=== PATIENT | female | born 1970 | race Caucasian/White ===

== ENCOUNTER 2017-11-08 06:06 | Day surgery (SDC) | payer OTHER ==
[~2017-11-08] VITALS: Ht 167.6 cm; Wt 96.2 kg
[~2017-11-08 06:06] MED LIST: ACET500 PO; ALBU90OI INH; AMOX500 PO; CEPH500 PO; CLOB.05TO; CODACE30 PO; COMPAZINE10 MG PO; CYCL10; CYCL10 PO; DIAZ2 PO; DIPATR PO; DOXY100 PO; ELET40TA PO; FLUT.05NI; GUAI600T33 PO; HYDMOR4 PO; IBUP600 PO; IBUP800 PO; LEVO-T25 MCG PO; MARIJUANA; NAPR500 PO; OXYACE5T PO; PROACE100; PROM25 PO; Preparation H26 GM; RELPAX PO; RIZATRIPTAN10 M1 PO; RXLEVESTKI PO; RXPROACE PO; SACC250C PO; TRAM50 PO; TRIA80TC TOP; TUCKS1 EACH TP; Zofran Odt4 MG SL; Zofran Odt8 MG SL; Zofran4 MG PO; medical marijuana
== END 2017-11-08 08:51 | disposition home or self-care (01) ==
LOC: ORSCSDS 06:06
PROVIDERS: Obstetrics & Gynecology
PROC: 0UB98ZX Excision of Uterus, Via Natural or Artificial Opening Endoscopic, Diagnostic (ICD-10-PCS; principal; 2017-11-08 07:30)
PROC: 0UH97HZ Insertion of Contraceptive Device into Uterus, Via Natural or Artificial Opening (ICD-10-PCS; principal; 2017-11-08 07:30)
DX: N92.0 Excessive and frequent menstruation with regular cycle (principal); N84.0 Polyp of corpus uteri; Z30.2 Encounter for sterilization; E03.9 Hypothyroidism, unspecified; K21.9 Gastro-esophageal reflux disease without esophagitis; J45.909 Unspecified asthma, uncomplicated; E66.9 Obesity, unspecified; Z68.34 Body mass index [BMI] 34.0-34.9, adult; Z79.899 Other long term (current) drug therapy
CPT/HCPCS: 88305; J1100; J2250; J2405; J2550; J2765; J3010; J7120; J7298

== ENCOUNTER 2018-10-04 17:05 | Emergency (ER) | payer OTHER ==
[~2018-10-04] VITALS: Ht 170.2 cm; Wt 99.8 kg
[2018-10-04] MEDS ORDERED: BIRTH CONTROL (18:21)
[2018-10-04] MEDS ORDERED: Colace100 MG PO (18:23)
== END 2018-10-04 18:34 | disposition home or self-care (01) ==
LOC: ER 17:05
DX: K59.00 Constipation, unspecified (principal); G43.909 Migraine, unspecified, not intractable, without status migrainosus; Z88.5 Allergy status to narcotic agent; Z79.899 Other long term (current) drug therapy
CPT/HCPCS: 74019; 99283-25

== ENCOUNTER → 2021-03-27 | Outpatient (CLI) | payer OTHER ==
[~2021-03-27] MED LIST changes: +BIRTH CONTROL; +Colace100 MG PO
[2021-04-02 16:06] LABS: COTININE <10.0 ng/mL (.); NICOTINE <10.0 ng/mL (.)
== END | disposition home or self-care (01) ==
LOC: LAB 14:53 → LAB SHORT 14:53 → EDSTATUS 03-23 16:15 → LAB FUT 03-23 16:15
PROVIDERS: Podiatrist Foot & Ankle Surgery
DX: M76.61 Achilles tendinitis, right leg (principal); Z87.891 Personal history of nicotine dependence
CPT/HCPCS: G0480

== ENCOUNTER 2021-04-28 08:09 | Day surgery (SDC) | payer OTHER ==
[~2021-04-28] VITALS: Ht 170.2 cm; Wt 106.2 kg
[2021-04-28] MEDS ORDERED: MOTRIN IB200 MG PO (08:41)
== END 2021-04-28 11:08 | disposition home or self-care (01) ==
LOC: ORSCSDS 08:09
PROVIDERS: Podiatrist Foot & Ankle Surgery
PROC: 0L8N0ZZ Division of Right Lower Leg Tendon, Open Approach (ICD-10-PCS; principal; 2021-04-28 09:30)
DX: M24.571 Contracture, right ankle (principal); M76.61 Achilles tendinitis, right leg; E03.9 Hypothyroidism, unspecified; K21.9 Gastro-esophageal reflux disease without esophagitis; Z79.899 Other long term (current) drug therapy
CPT/HCPCS: A9270; J0690; J1100; J2250; J2405; J2704; J3010; J7120

== ENCOUNTER 2021-08-22 12:04 | Day surgery (SDC) | payer OTHER ==
[~2021-08-22] VITALS: Ht 170.2 cm; Wt 101.4 kg
[~2021-08-22 12:04] MED LIST changes: +CLOBETASOL EMOL15 G2; +EUTHYROX50 MCG PO; +MOTRIN IB200 MG PO; +Mobic15 MG PO; +NYSTOP15 GM
[2021-08-22] MEDS ORDERED: ELET40TA PO (12:50)
== END 2021-08-22 14:35 | disposition home or self-care (01) ==
LOC: ORSCSDS 12:04
PROVIDERS: Surgery
PROC: 0DBM8ZX Excision of Descending Colon, Via Natural or Artificial Opening Endoscopic, Diagnostic (ICD-10-PCS; principal; 2021-08-22 13:30)
PROC: 0DBP8ZX Excision of Rectum, Via Natural or Artificial Opening Endoscopic, Diagnostic (ICD-10-PCS; principal; 2021-08-22 13:30)
DX: Z12.11 Encounter for screening for malignant neoplasm of colon (principal); D12.4 Benign neoplasm of descending colon; K62.1 Rectal polyp; J44.9 Chronic obstructive pulmonary disease, unspecified; F32.A Depression, unspecified; E78.5 Hyperlipidemia, unspecified; E03.9 Hypothyroidism, unspecified; R62.59 Other lack of expected normal physiological development in childhood; Z79.899 Other long term (current) drug therapy; F17.210 Nicotine dependence, cigarettes, uncomplicated
CPT/HCPCS: 88305; J2250; J2704; J7120

== ENCOUNTER 2022-09-01 02:26 | Emergency (ER) | payer OTHER ==
[~2022-09-01] VITALS: Ht 170.2 cm; Wt 102.1 kg
[2022-09-01 02:58] LABS: BASOPHILS ABSOLUTE AUTO 0.05 K/mm3 (0.00-0.23); BASOPHILS PERCENT AUTO 1 % (0-2); EOSINOPHILS ABSOLUTE AUTO 0.21 K/mm3 (0.00-0.68); EOSINOPHILS PERCENT AUTO 3 % (0-6); Hematocrit 40.6 % (33.0-51.0); Hemoglobin 13.2 g/dL (11.5-16.0); IMMATURE GRAN ABSOLUTE AUTO 0.01 K/mm3 (0.00-0.10); IMMATURE GRAN PERCENT AUTO 0 % (0-1); LYMPHOCYTES ABSOLUTE AUTO 2.03 K/mm3 (0.84-5.20); LYMPHOCYTES PERCENT AUTO 30 % (21-46); MONOCYTES ABSOLUTE AUTO 0.51 K/mm3 (0.16-1.47); MONOCYTES PERCENT AUTO 7 % (4-13); Mean Corpuscular HGB 25.8 pg (26.0-34.0); Mean Corpuscular HGB Conc 32.5 g/dL (31.5-36.5); Mean Corpuscular Volume 79 fL (80-100); Mean Platelet Volume 10.2 fL (9.1-12.4); NEUTROPHILS ABSOLUTE AUTO 4.04 K/mm3 (1.96-9.15); NEUTROPHILS PERCENT AUTO 59 % (41-73); Platelet Count 323 K/mm3 (150-400); RDW Coefficient Variation 14.5 % (11.7-14.2); RDW Standard Deviation 42.1 fL (35.1-46.3); Red Blood Cell Count 5.12 M/mm3 (3.80-5.20); White Blood Cell Count 6.85 K/mm3 (4.00-11.30)
[2022-09-01 03:14] LABS: Albumin/Globulin Ratio 1.2 (0.8-1.8); Bilirubin, Total 0.2 mg/dL (0.1-1.0); Bun/Creatinine Ratio 15.8 (12.0-20.0); Calcium, Blood 8.6 mg/dL (8.5-10.1); Creatinine, Blood 1.01 mg/dL (0.40-1.00); Globulin, Blood 3.4 g/dL (2.2-4.0); Potassium, Blood 3.9 mmol/L (3.5-5.5); Total Protein, Blood 7.4 g/dL (6.4-8.2)
[2022-09-01 05:30] VITALS: BP 110/60
== END 2022-09-01 06:00 | disposition home or self-care (01) ==
LOC: ER 02:26
PROVIDERS: Student in an Organized Health Care Education/Training Program
DX: R07.9 Chest pain, unspecified (principal); R05.9 Cough, unspecified; Z88.5 Allergy status to narcotic agent; Z79.899 Other long term (current) drug therapy
CPT/HCPCS: 36415; 71046; 80053; 83690; 83880; 84484; 85025; 93005; 93010; 96374; 99284-25; A9270; J1885

== ENCOUNTER 2023-03-14 12:34 | Day surgery (SDC) | payer OTHER ==
[~2023-03-14] VITALS: Ht 167.6 cm; Wt 101.3 kg
--- NOTE | 2023-03-14 14:36 | NUR ---
03/14/23 1436 DEEP KHAN GIVEN POST EGD FOR NAUSEA PER DR ROMO
[2023-03-14 15:34] VITALS: BP 108/68
== END 2023-03-14 15:00 | disposition home or self-care (01) ==
LOC: ORSCSDS 12:34
PROVIDERS: Surgery
PROC: 0DB68ZX Excision of Stomach, Via Natural or Artificial Opening Endoscopic, Diagnostic (ICD-10-PCS; principal; 2023-03-14 14:15)
DX: R10.13 Epigastric pain (principal); K44.9 Diaphragmatic hernia without obstruction or gangrene; K21.9 Gastro-esophageal reflux disease without esophagitis; F32.A Depression, unspecified; E03.9 Hypothyroidism, unspecified; E78.5 Hyperlipidemia, unspecified; J45.909 Unspecified asthma, uncomplicated; E66.9 Obesity, unspecified; Z68.34 Body mass index [BMI] 34.0-34.9, adult
CPT/HCPCS: 88305; 88342; J0461; J2001; J2405; J2704; J7120; Q9968

== ENCOUNTER 2023-04-23 09:09 | Observation (INO) | payer OTHER ==
[~2023-04-23] VITALS: Ht 167.6 cm; Wt 98.6 kg
[2023-04-23] VITALS (20 sets, daily range): BP systolic 92–159; BP diastolic 45–131
[~2023-04-23 09:09] MED LIST changes: +CLOBETASOL EMOL15 G1 TOP; +MELO7.5 PO; +NYSTOP15 GM TOP; +OMEP20ER PO; +OXYC5 PO
--- NOTE | 2023-04-23 10:02 | NUR ---
History, Chart, Medications and Allergies reviewed before start of procedure. Ambulatory in Day Surgery. Pre-Op teaching done. Pt verbalizes understanding. Patient confirms NPO status and agrees with scheduled surgery. Patient reports completing Chlorhexadine shower X2 prior to admission to hospital. Patient States Post-Procedure ride home has been arranged.
--- NOTE | 2023-04-23 14:35 | NUR ---
PT ARRIVED TO THE ROOM AT 1420. PT DROWSY UPON ARRIVAL. SHE COMPLAINS OF 10/10 PAIN WHEN DISTURBED REST WITH EYES CLOSED, REPIRATIONS EVEN AND UNLABORED AND APPEARS RELAXED WHEN SHE IS LEFT TO REST. PT PLACED ON 2L O2 VIA NC FOR O2 SATURATION OF 88% ON RA, O2 SATURATION >90% ON 2L O2. L INCISIONS SITES HAVE SCANT RED DRAINAGE. PT'S S/O IS AT THE BEDSIDE. CALL LIGHT WITHIN REACH.
--- NOTE | 2023-04-23 17:30 | NUR ---
NAUSEA/ANXIETY PT HAD DRY HEAVING SINCE ARRIVAL TO THE ROOM. PT WAS GIVEN ZOFRAN WITH SOME IMPROVEMENT AND SHE WAS ABLE TO REST. WHEN SHE US AWAKE SHE IS ANXIOUS AND IMMEDIATELY BEGINS TO DRY HEAVE. DR. GUILLERMO NOTIFIED, ATIVAN AND SCOPALAMINE PATCH ORDERED.
--- NOTE | 2023-04-23 20:27 | NUR ---
SHIFT SUMMARY PT IS POD#0. SHE HAS BEEN NAUSEATED, ANXIOUS AND PAINFUL POST-OP. PT GIVEN ZOFRAN AND SCOPALAMINE PATCH GIVEN FOR NAUSEA. ATIVAN GIVEN FOR NAUSEA. PT HAS BEEN RESTING QUIETLY SINCE ATIVAN GIVEN, SHE WAKES WHEN SPOKEN TO. PT ON CONTINUOUS PULSE OX FOR SAFETY. PT IS A 1 ASSIST WHEN OOB. HER IS AT THE BEDSIDE FOR SUPPORT. REPORT GIVEN TO DANIELLE GRIMM.
[2023-04-24 01:00] VITALS: BP 101/63
[2023-04-24 03:37] VITALS: BP 111/65
[2023-04-24 04:06] LABS: Hematocrit 35.8 % (33.0-51.0); Hemoglobin 11.5 g/dL (11.5-16.0); Mean Corpuscular HGB 25.3 pg (26.0-34.0); Mean Corpuscular HGB Conc 32.1 g/dL (31.5-36.5); Mean Corpuscular Volume 79 fL (80-100); Platelet Count 298 K/mm3 (150-400); RDW Coefficient Variation 14.2 % (11.7-14.2); RDW Standard Deviation 40.8 fL (35.1-46.3); Red Blood Cell Count 4.54 M/mm3 (3.80-5.20); White Blood Cell Count 8.99 K/mm3 (4.00-11.30)
[2023-04-24 04:23] LABS: Bun/Creatinine Ratio 10.8 (12.0-20.0); Calcium, Blood 7.7 mg/dL (8.5-10.1); Creatinine, Blood 0.83 mg/dL (0.40-1.00); Magnesium, Blood 2.5 mg/dL (1.6-2.4)
--- NOTE | 2023-04-24 05:23 | NUR ---
SHIFT SUMMARY NOC. PT A/O X4. PT'S 5 LAP SITES ARE DRY AND INTACT WITH SEROUSANG DRAINAGE ON ONE SITE. PT MEDICATED FOR NAUSEA X2 THIS SHIFT WITH RELIEF. PT REPORTS NAUSEA AFTER DRINKING CLEAR LIQUIDS. IV FLUIDS RUNNING. PT HAS NOT VOMITTED. PT DENIES PASSING GAS BUT HAS BEEN BELCHING. PT RESTED WITH EYES CLOSED, WITH AT BEDSIDE, AND CALL LIGHT IN REACH.
[2023-04-24 08:00] VITALS: BP 101/52
[2023-04-24 14:01] VITALS: BP 94/58
[2023-04-24 20:13] VITALS: BP 101/55
[2023-04-25 05:05] VITALS: BP 104/59
--- NOTE | 2023-04-25 06:33 | NUR ---
SHIFT SUMMARY PT IS POD#2 FOR A ROBOTIC LAP PARAESOPHAGEAL HERNIA REPAIR W/TOUPET FUNDOPLICATION AND A ROBOTIC CHOLECYSTECTOMY. PT HAS WALKED SEVERAL TIMES IN THE HALLWAY WITH HER PARTNER AND HAS BEEN STEADY THROUGHOUT THE SHIFT. PT'S PAIN HAS BEEN MANAGED PER EMAR. VITAL SIGNS HAVE BEEN STABLE AND NO ACUTE EVENTS OCCURRED DURING THIS SHIFT. BED IS IN LOWEST POSITION, CALL LIGHT IS WITHIN REACH.
[2023-04-25 08:24] VITALS: BP 100/65
== END 2023-04-25 13:30 | disposition home or self-care (01) ==
LOC: ORSCMMR 09:09 → ORD 10:30 → SURS 14:20 → ORSCMMR 14:21 → SURS 15:16
PROVIDERS: ADMIT Surgery
DX: K80.10 Calculus of gallbladder with chronic cholecystitis without obstruction (principal); K44.9 Diaphragmatic hernia without obstruction or gangrene; K21.9 Gastro-esophageal reflux disease without esophagitis; E78.5 Hyperlipidemia, unspecified; E03.9 Hypothyroidism, unspecified; E66.9 Obesity, unspecified; Z88.5 Allergy status to narcotic agent; Z88.8 Allergy status to other drugs, medicaments and biological substances; Z79.890 Hormone replacement therapy; Z79.899 Other long term (current) drug therapy
CPT/HCPCS: 36415; 80048; 83735; 85027; 88304; 94760; 94762; 96361; 96372; 96374; 96375; 96376; A9270; G0378; J0690; J1100; J1170; J1650; J1885; J2060; J2250; J2405; J2704; J2765; J3010; J7120

== ENCOUNTER → 2023-06-20 | Outpatient (CLI) | payer OTHER ==
[2023-06-20 12:34] LABS: BASOPHILS ABSOLUTE AUTO 0.05 K/mm3 (0.00-0.23); BASOPHILS PERCENT AUTO 1 % (0-2); EOSINOPHILS ABSOLUTE AUTO 0.12 K/mm3 (0.00-0.68); EOSINOPHILS PERCENT AUTO 2 % (0-6); Hematocrit 38.1 % (33.0-51.0); IMMATURE GRAN ABSOLUTE AUTO 0.01 K/mm3 (0.00-0.10); IMMATURE GRAN PERCENT AUTO 0 % (0-1); LYMPHOCYTES ABSOLUTE AUTO 1.91 K/mm3 (0.84-5.20); LYMPHOCYTES PERCENT AUTO 38 % (21-46); MONOCYTES ABSOLUTE AUTO 0.41 K/mm3 (0.16-1.47); MONOCYTES PERCENT AUTO 8 % (4-13); Mean Corpuscular HGB 24.8 pg (26.0-34.0); Mean Corpuscular HGB Conc 31.5 g/dL (31.5-36.5); Mean Corpuscular Volume 79 fL (80-100); Mean Platelet Volume 10.1 fL (9.1-12.4); NEUTROPHILS ABSOLUTE AUTO 2.58 K/mm3 (1.96-9.15); NEUTROPHILS PERCENT AUTO 51 % (41-73); Platelet Count 324 K/mm3 (150-400); RDW Coefficient Variation 15.1 % (11.7-14.2); RDW Standard Deviation 43.4 fL (35.1-46.3); Red Blood Cell Count 4.84 M/mm3 (3.80-5.20); White Blood Cell Count 5.08 K/mm3 (4.00-11.30)
[2023-06-20 12:55] LABS: CHOL/HDL RATIO 3.6; Cholesterol 175 mg/dL (50-200); HDL Cholesterol 49 mg/dL (>39); Low Density Lipoprotein Chol 98 mg/dL (0-110); Triglycerides 141 mg/dL (30-160); Very Low Density Lipoprot Chol 28 mg/dL (6-32)
[2023-06-21 15:11] LABS: A/G RATIO 1.7 (1.2-2.2); ALKALINE PHOSPHATASE, S 55 IU/L (44-121); ALT (SGPT) 12 IU/L (0-32); AST (SGOT) 14 IU/L (0-40); BILIRUBIN, TOTAL <0.2 mg/dL (0.0-1.2); BUN 14 mg/dL (6-24); BUN/CREATININE RATIO 16 (9-23); CALCIUM, SERUM 8.7 mg/dL (8.7-10.2); CARBON DIOXIDE, TOTAL 21 mmol/L (20-29); CHLORIDE, SERUM 105 mmol/L (96-106); CREATININE, SERUM 0.89 mg/dL (0.57-1.00); GLOBULIN, TOTAL 2.4 g/dL (1.5-4.5); GLUCOSE, SERUM 104 mg/dL (70-99); POTASSIUM, SERUM 4.3 mmol/L (3.5-5.2); PROTEIN, TOTAL, SERUM 6.4 g/dL (6.0-8.5); SODIUM, SERUM 139 mmol/L (134-144)
== END ==
LOC: LAB 10:50 → LAB SHORT 10:50
PROVIDERS: Internal Medicine
DX: Z12.4 Encounter for screening for malignant neoplasm of cervix (principal); E03.9 Hypothyroidism, unspecified; E78.5 Hyperlipidemia, unspecified; R73.9 Hyperglycemia, unspecified
CPT/HCPCS: 80053; 80061; 83036; 84443; 85025

== ENCOUNTER 2023-11-24 21:15 | Emergency (ER) | payer OTHER ==
[~2023-11-24] VITALS: Ht 170.2 cm; Wt 96.6 kg
[2023-11-24] MEDS ORDERED: Ketorolac Tromethamine 30mg Vial IV ONE (23:10)
[2023-11-24] MEDS ORDERED: FentaNYL Citrate 50 MCG/ML 2 ML Injection IV ONE (23:15)
[2023-11-25 01:15] VITALS: BP 115/63
== END 2023-11-25 01:20 | disposition home or self-care (01) ==
LOC: ER 21:15
DX: S90.112A Contusion of left great toe without damage to nail, initial encounter (principal); W22.8XXA Striking against or struck by other objects, initial encounter; Y92.828 Other wilderness area as the place of occurrence of the external cause
CPT/HCPCS: 73630; 96374; 96375; 99283-25; J1885; J3010

== ENCOUNTER 2024-02-02 15:14 | Emergency (ER) | payer OTHER ==
[~2024-02-02] VITALS: Ht 167.6 cm; Wt 95.7 kg
[2024-02-02 15:39] VITALS: BP 129/72
[2024-02-02 16:09] LABS: BASOPHILS ABSOLUTE AUTO 0.05 K/mm3 (0.00-0.23); BASOPHILS PERCENT AUTO 1 % (0-2); EOSINOPHILS ABSOLUTE AUTO 0.09 K/mm3 (0.00-0.68); EOSINOPHILS PERCENT AUTO 2 % (0-6); Hematocrit 35.3 % (33.0-51.0); Hemoglobin 11.7 g/dL (11.5-16.0); IMMATURE GRAN ABSOLUTE AUTO 0.01 K/mm3 (0.00-0.10); IMMATURE GRAN PERCENT AUTO 0 % (0-1); LYMPHOCYTES ABSOLUTE AUTO 1.59 K/mm3 (0.84-5.20); LYMPHOCYTES PERCENT AUTO 26 % (21-46); MONOCYTES ABSOLUTE AUTO 0.46 K/mm3 (0.16-1.47); MONOCYTES PERCENT AUTO 8 % (4-13); Mean Corpuscular HGB 27.5 pg (26.0-34.0); Mean Corpuscular HGB Conc 33.1 g/dL (31.5-36.5); Mean Corpuscular Volume 83 fL (80-100); Mean Platelet Volume 10.4 fL (9.1-12.4); NEUTROPHILS ABSOLUTE AUTO 3.93 K/mm3 (1.96-9.15); NEUTROPHILS PERCENT AUTO 64 % (41-73); Platelet Count 300 K/mm3 (150-400); RDW Coefficient Variation 14.6 % (11.7-14.2); RDW Standard Deviation 43.7 fL (35.1-46.3); Red Blood Cell Count 4.26 M/mm3 (3.80-5.20); White Blood Cell Count 6.13 K/mm3 (4.00-11.30)
[2024-02-02 16:35] LABS: Albumin, Blood 3.6 g/dL (3.4-5.0); Albumin/Globulin Ratio 1.2 (0.8-1.8); Bilirubin, Total 0.4 mg/dL (0.1-1.0); Bun/Creatinine Ratio 10.7 (12.0-20.0); Creatinine, Blood 1.12 mg/dL (0.40-1.00); Globulin, Blood 2.9 g/dL (2.2-4.0); Potassium, Blood 3.6 mmol/L (3.5-5.5); Total Protein, Blood 6.5 g/dL (6.4-8.2)
== END 2024-02-02 16:37 | disposition home or self-care (01) ==
LOC: ER 15:14
PROVIDERS: Physician Assistant
DX: N92.0 Excessive and frequent menstruation with regular cycle (principal); G43.909 Migraine, unspecified, not intractable, without status migrainosus; Z79.899 Other long term (current) drug therapy; Z88.5 Allergy status to narcotic agent; Z88.8 Allergy status to other drugs, medicaments and biological substances
CPT/HCPCS: 80053; 85025; 99283

== ENCOUNTER 2024-02-25 09:11 | Emergency (ER) | payer OTHER ==
[~2024-02-25] VITALS: Ht 170.2 cm; Wt 90.7 kg
[2024-02-25 10:12] LABS: BASOPHILS ABSOLUTE AUTO 0.03 K/mm3 (0.00-0.23); BASOPHILS PERCENT AUTO 1 % (0-2); EOSINOPHILS ABSOLUTE AUTO 0.13 K/mm3 (0.00-0.68); EOSINOPHILS PERCENT AUTO 3 % (0-6); Hematocrit 23.6 % (33.0-51.0); IMMATURE GRAN ABSOLUTE AUTO 0.02 K/mm3 (0.00-0.10); IMMATURE GRAN PERCENT AUTO 1 % (0-1); LYMPHOCYTES ABSOLUTE AUTO 1.02 K/mm3 (0.84-5.20); LYMPHOCYTES PERCENT AUTO 23 % (21-46); MONOCYTES ABSOLUTE AUTO 0.35 K/mm3 (0.16-1.47); MONOCYTES PERCENT AUTO 8 % (4-13); Mean Corpuscular HGB 23.6 pg (26.0-34.0); Mean Corpuscular HGB Conc 29.7 g/dL (31.5-36.5); Mean Corpuscular Volume 80 fL (80-100); Mean Platelet Volume 9.7 fL (9.1-12.4); NEUTROPHILS ABSOLUTE AUTO 2.81 K/mm3 (1.96-9.15); NEUTROPHILS PERCENT AUTO 64 % (41-73); Platelet Count 375 K/mm3 (150-400); RDW Standard Deviation 43.6 fL (35.1-46.3); Red Blood Cell Count 2.97 M/mm3 (3.80-5.20); White Blood Cell Count 4.36 K/mm3 (4.00-11.30)
[2024-02-25 10:55] LABS: International Normalized Ratio 0.92; Prothrombin Time Results 9.9 Sec (9.7-11.5)
[2024-02-25] MEDS ORDERED: NS 1,000 ML IV ONE (12:51)
[2024-02-25] MEDS ORDERED: NS 1,000 ML IV SCH (14:10)
[2024-02-25 15:28] LABS: Hematocrit 22.8 % (33.0-51.0); Hemoglobin 7.1 g/dL (11.5-16.0)
[2024-02-25 17:50] LABS: Hematocrit 26.9 % (33.0-51.0); Hemoglobin 8.2 g/dL (11.5-16.0)
[2024-02-25 19:10] VITALS: BP 151/84
== END 2024-02-25 19:10 | disposition home or self-care (01) ==
LOC: ER 09:11
PROVIDERS: Student in an Organized Health Care Education/Training Program
DX: D50.0 Iron deficiency anemia secondary to blood loss (chronic) (principal); N93.9 Abnormal uterine and vaginal bleeding, unspecified; G43.909 Migraine, unspecified, not intractable, without status migrainosus; E03.9 Hypothyroidism, unspecified; Z88.5 Allergy status to narcotic agent; Z88.8 Allergy status to other drugs, medicaments and biological substances; Z79.890 Hormone replacement therapy
CPT/HCPCS: 36430; 85014; 85018; 85025; 85610; 85730; 86850; 86900; 86901; 86923; 99284-25; J7030; P9016

== ENCOUNTER 2024-02-27 08:18 | Emergency (ER) | payer OTHER ==
[~2024-02-27] VITALS: Ht 167.6 cm; Wt 96.2 kg
[2024-02-27] MEDS ORDERED: Acetaminophen 500 MG Tab PO ONE (09:30)
[2024-02-27] MEDS ORDERED: Ketorolac Tromethamine 15mg Vial IV ONE (09:30)
[2024-02-27] MEDS ORDERED: Metoclopramide HCl 5MG / ML 2ML Vial IV ONE (09:30)
[2024-02-27] MEDS ORDERED: Sod Ferric Gluc Complx/Sucrose 125 MG in NS 100 ML IV ONE (09:35)
[2024-02-27 10:08] LABS: BASOPHILS ABSOLUTE AUTO 0.04 K/mm3 (0.00-0.23); BASOPHILS PERCENT AUTO 1 % (0-2); EOSINOPHILS ABSOLUTE AUTO 0.12 K/mm3 (0.00-0.68); EOSINOPHILS PERCENT AUTO 2 % (0-6); Hematocrit 25.2 % (33.0-51.0); Hemoglobin 7.7 g/dL (11.5-16.0); IMMATURE GRAN ABSOLUTE AUTO 0.03 K/mm3 (0.00-0.10); IMMATURE GRAN PERCENT AUTO 0 % (0-1); LYMPHOCYTES ABSOLUTE AUTO 1.16 K/mm3 (0.84-5.20); LYMPHOCYTES PERCENT AUTO 15 % (21-46); MONOCYTES ABSOLUTE AUTO 0.53 K/mm3 (0.16-1.47); MONOCYTES PERCENT AUTO 7 % (4-13); Mean Corpuscular HGB 24.2 pg (26.0-34.0); Mean Corpuscular HGB Conc 30.6 g/dL (31.5-36.5); Mean Corpuscular Volume 79 fL (80-100); Mean Platelet Volume 10.1 fL (9.1-12.4); NEUTROPHILS ABSOLUTE AUTO 5.72 K/mm3 (1.96-9.15); NEUTROPHILS PERCENT AUTO 75 % (41-73); Platelet Count 358 K/mm3 (150-400); RDW Coefficient Variation 15.7 % (11.7-14.2); RDW Standard Deviation 44.9 fL (35.1-46.3); Red Blood Cell Count 3.18 M/mm3 (3.80-5.20)
[2024-02-27 10:16] LABS: Bun/Creatinine Ratio 11.1 (12.0-20.0); Calcium, Blood 7.9 mg/dL (8.5-10.1); Creatinine, Blood 0.81 mg/dL (0.40-1.00); Potassium, Blood 3.9 mmol/L (3.5-5.5)
[2024-02-27] MEDS ORDERED: ALYACEN1 EAC1 PO (13:04)
[2024-02-27] MEDS ORDERED: METO10 PO (13:04)
[2024-02-27 13:32] VITALS: BP 109/49
== END 2024-02-27 13:35 | disposition home or self-care (01) ==
LOC: ER 08:18
PROVIDERS: Physician Assistant
DX: N93.8 Other specified abnormal uterine and vaginal bleeding (principal); R51.9 Headache, unspecified; E03.9 Hypothyroidism, unspecified; Z79.899 Other long term (current) drug therapy; Z88.5 Allergy status to narcotic agent
CPT/HCPCS: 76830; 76856; 80048; 85025; 96365; 96366; 96375; 99284-25; A9270; J1885; J2765; J2916

== ENCOUNTER → 2024-03-06 | Outpatient (CLI) | payer OTHER ==
[~2024-03-06] MED LIST changes: +ALYACEN1 EAC1 PO; +METO10 PO
== END ==
LOC: LAB 07:38 → LAB SHORT 07:38
DX: N84.1 Polyp of cervix uteri (principal)
CPT/HCPCS: 88305

== ENCOUNTER → 2024-03-06 | Outpatient (CLI) | payer OTHER ==
[2024-03-18 07:03] LABS: HPV HIGH RISK BY TMA Not Detected; HPV SOURCE Cerv/Endocerv
== END ==
LOC: LAB 15:24 → LAB SHORT 15:24
PROVIDERS: Obstetrics & Gynecology
DX: Z01.419 Encounter for gynecological examination (general) (routine) without abnormal findings (principal)
CPT/HCPCS: 87624; G0123

== ENCOUNTER → 2024-04-10 | Outpatient (CLI) | payer OTHER ==
[~2024-04-10] MED LIST changes: +OXAYDO5 M4 PO
[2024-04-11 09:06] LABS: Bacterial Vaginosis PCR Negative (NEGATIVE); Candida Group, PCR NOT DETECTED (NOT DETECT); Candida glabrata-krusei, PCR NOT DETECTED (NOT DETECT)
== END ==
LOC: LAB 16:44 → LAB SHORT 16:44
PROVIDERS: Obstetrics & Gynecology
DX: N76.0 Acute vaginitis (principal)
CPT/HCPCS: 87481; 87661; 87801

== ENCOUNTER → 2024-04-15 | Outpatient (CLI) | payer OTHER ==
[2024-04-15 20:24] LABS: Bacterial Vaginosis PCR Negative (NEGATIVE); Candida Group, PCR NOT DETECTED (NOT DETECT); Candida glabrata-krusei, PCR NOT DETECTED (NOT DETECT)
== END | disposition home or self-care (01) ==
LOC: LAB SHORT 13:35 → LAB 13:35
PROVIDERS: Obstetrics & Gynecology
DX: N76.0 Acute vaginitis (principal)
CPT/HCPCS: 87481; 87661; 87801